=== PATIENT | female | born 1995 | race African-American/Black ===

== ENCOUNTER → 2017-10-22 | Outpatient (CLI) | payer MEDICAID ==
[2017-10-22 13:11] LABS: RBCS (WET MOUNT) NO RBCS SEEN; T.VAGINALIS (WET MOUNT) NO TRICHOMONAS SEEN; WBCS (WET MOUNT) 1+ WBCS SEEN; YEAST (WET MOUNT) NO YEAST SEEN
[2017-10-22 14:39] LABS: CHLAM PCR NOT DETECTED (NOT DETECT); GON PCR NOT DETECTED (NOT DETECT)
== END ==
LOC: LAB 13:01
PROVIDERS: ATTEND Nurse Practitioner Acute Care
DX: N89.8 Other specified noninflammatory disorders of vagina (principal); Z20.2 Contact with and (suspected) exposure to infections with a predominantly sexual mode of transmission
CPT/HCPCS: 87210; 87491; 87591

== ENCOUNTER 2017-11-20 15:41 | Emergency (ER) | payer SELFPAY ==
--- NOTE | 2017-11-20 16:14 | ER Document Report ---
HPI - HPI Patient complains to provider of: Abscess Onset: Other - I have days Onset/Duration: Gradual Pain Level: 5 Context: 22-year-old nondiabetic female with a throbbing left buttocks abscess near the gluteal crest for 5 days. No history of MRSA. No fever or chills. No history of pilonidal cyst. Associated Symptoms: None Exacerbated by: Walking Relieved by: Denies Similar symptoms previously: No Recently seen / treated by doctor: No - ROS ROS below otherwise negative: Yes Systems Reviewed and Negative: Yes All other systems reviewed and negative - REPRODUCTIVE Reproductive: DENIES: : Past Medical History - General Information source: Patient - Social History Smoking Status: Unknown if Ever Smoked Frequency of alcohol use: None Drug Abuse: None Lives with: Family Family History: Arthritis, CAD, DM, Hyperlipidemia, Hypertension - Medical History Medical History: Negative Surgical Hx: Negative - Immunizations Immunizations up to date: Yes Hx Diphtheria, Pertussis, Tetanus Vaccination: Yes Vertical Provider Document - CONSTITUTIONAL Agree With Documented VS: Yes Exam Limitations: No Limitations - INFECTION CONTROL TRAVEL OUTSIDE OF THE [place] IN LAST 30 DAYS: No - HEENT HEENT: Normocephalic - NECK Neck: Supple - DERM Integumentary: Abscess - Tender tense left buttocks abscess below the gluteal crest Course - Vital Signs Vital signs: Temp Pulse Resp BP Pulse Ox 98.5 F 62 18 119/66 96 11/20/17 15:57 11/20/17 15:57 11/20/17 15:57 11/20/17 15:57 11/20/17 15:57 Procedures - Incision and Drainage Buttock Time completed: 17:31 Type: Simple Anesthetic type: 1% Lidocaine mL's of anesthetic: 3 Blade size: 11 I&D procedure: Betadine prep applied, Sterile dressing applied - packing with corner of 4 x 4 Incision Method: Incision made by scalpel Amount/type of drainage: Large pus and blood Discharge - Discharge Clinical Impression: Abscess I&D Condition: Good Disposition: HOME, SELF-CARE Instructions: Abscess ([facility]), Acetaminophen, Cephalexin ([facility]), Ibuprofen ( General) ([facility]), Post Incision and Drainage, Trimethoprim-Sulfa ([facility]) Additional Instructions: Wound check in 2 days Return sooner if worse Take both antibiotics until they are gone Leave the original dressing on for 2 days and then remove. Shower and use a washcloth and antibacterial soap, wash vigorously and let the water spray into the wound Prescriptions: Ibuprofen [Motrin 800 mg Tablet] 800 mg PO Q8HP PRN #30 tablet PRN Reason: Cephalexin Monohydrate [Keflex 500 mg Capsule] 500 mg PO QID #28 capsule Sulfamethoxazole/Trimethoprim [Sulfamethoxazole-Tmp Ds Tablet] 1 each PO BID # 14 tablet Forms: Return to Work
[2017-11-20] MEDS ORDERED: LIDOCAINE 4%/TETRACAINE 0.5%/EPI 0.18% 5 ML TOPICAL SOLN TOP ONE (16:23)
[2017-11-20] MEDS ORDERED: ONDANSETRON 4 MG TAB.RAPDIS PO ONE (16:23)
[2017-11-20] MEDS ORDERED: IBUPROFEN 800 MG TABLET PO ONE (16:23)
[2017-11-20] MEDS ORDERED: CEPHALEXIN 500 MG CAPSULE PO ONE (16:23)
[2017-11-20] MEDS ORDERED: SULFAMETHOXAZOLE/TRIMETHOPRIM 800-160 MG TABLET PO ONE (16:23)
[2017-11-20 17:44] VITALS: BP 111/72
== END 2017-11-20 17:41 | disposition home or self-care (01) ==
LOC: ER 15:41
PROC: 0H98XZZ Drainage of Buttock Skin, External Approach (ICD-10-PCS; principal; 2017-11-20)
DX: L02.31 Cutaneous abscess of buttock (principal)
CPT/HCPCS: 99283; 10060; S0119; J3490

== ENCOUNTER 2019-04-28 03:29 | Emergency (ER) | payer MEDICAID ==
[2019-04-28 07:43] VITALS: BP 107/78
--- NOTE | 2019-04-28 07:56 | EKG REPORT ---
SEVERITY:- NORMAL ECG - SINUS RHYTHM : Confirmed by: Raymond Morrison MD 28-Apr-2019 07:55:46
--- NOTE | 2019-04-28 17:51 | ER Document Report ---
Entered by STORM GODWIN SCRIBE 04/28/19 0651 Acting as scribe for:JEANMARIE GOMES MD ED Cardiac - General Chief Complaint: Chest Pain Stated Complaint: CHEST PRESSURE,TIGHTNESS Time Seen by Provider: 04/28/19 06:36 Mode of Arrival: Ambulatory Information source: Patient Notes: Patient is 23-year-old female who presents to the emergency department today with complaints of chest pain for x1 month. Patient states the pain has been in the center of her chest for the last month but last night it was "more over my heart" which is why she decided to come in today. Patient states that the pain feels like a "pulse of sharp pain" stating that it lasts for around 1 minute and then is gone for about 5 minutes before it comes back. Patient mentions that she has had increased anxiety since giving in September. Patient states she is having difficulty sleeping as well which is a chronic issue for her. Patient states that she does not have a local medical doctor stating that she moved here in December and has not looked for one yet. TRAVEL OUTSIDE OF THE [place] IN LAST 30 DAYS: No - Related Data Allergies/Adverse Reactions: No Known Allergies Allergy (Verified 04/28/19 03:45) Past Medical History - General Information source: Patient - Social History Smoking Status: Never Smoker Cigarette use (# per day): No Chew tobacco use (# tins/day): No Frequency of alcohol use: None Drug Abuse: None Lives with: Family Family History: Arthritis, CAD, DM, Hyperlipidemia, Hypertension Patient has suicidal ideation: No Patient has homicidal ideation: No Psychiatric Medical History: Reports: Hx Anxiety - Immunizations Immunizations up to date: Yes Hx Diphtheria, Pertussis, Tetanus Vaccination: Yes Review of Systems - Review of Systems Constitutional: No symptoms reported EENT: No symptoms reported Cardiovascular: See HPI, Chest pain Respiratory: No symptoms reported Gastrointestinal: No symptoms reported Genitourinary: No symptoms reported Female Genitourinary: No symptoms reported Musculoskeletal: No symptoms reported Skin: No symptoms reported Hematologic/Lymphatic: No symptoms reported Neurological/Psychological: See HPI, Anxiety, Other - difficulty sleeping -: Yes All other systems reviewed and negative Physical Exam - Vital signs Vitals: Temp Pulse Resp BP Pulse Ox 98.3 F 63 18 143/98 H 100 04/28/19 03:45 04/28/19 03:45 04/28/19 03:45 04/28/19 03:45 04/28/19 03:45 - Notes Notes: Physical Exam: General: Alert, appears well. HEENT: Normocephalic. Atraumatic. PERRL. Extraocular movements intact. Oropharynx clear. Neck: Supple. Non-tender. Respiratory: No respiratory distress. Clear and equal breath sounds bilaterally. Minimal left anterior chest wall tenderness to palpation inferior to the left breast. Cardiovascular: Regular rate and rhythm. Abdominal: Normal Inspection. Non-tender. No distension. Normal Bowel Sounds. Back: No gross abnormalities. Extremities: Moves all four extremities. Upper extremities: Normal inspection. Normal ROM. Lower extremities: Normal inspection. No edema. Normal ROM. Neurological: Normal cognition. AAOx4. Normal speech. Psychological: Normal affect. Normal Mood. Skin: Warm. Dry. Normal color. Course - Vital Signs Vital signs: Temp Pulse Resp BP Pulse Ox 97.8 F 55 L 18 107/78 100 04/28/19 07:41 04/28/19 05:50 04/28/19 07:41 04/28/19 07:41 04/28/19 07:41 Discharge - Discharge Clinical Impression: Anterior chest wall pain, Pressure in chest, Anxiety Condition: Stable Disposition: HOME, SELF-CARE Additional Instructions: Chest Pain of Unclear Cause The exact cause of your chest pain isn't clear. Fortunately, there is no evidence of a dangerous medical condition. Further testing may be required to find the source of the pain. Most often, we find that this pain is coming from the chest wall -- the muscles or rib joints in the chest. But chest pain can come from the lung and lung lining, the esophagus, the heart valves or heart lining, and even the stomach or gallbladder. Rest. Eat lightly until the pain is gone. We may prescribe medicine for pain and inflammation. You should call the physician immediately if the pain radiates to the shoulder, jaw or arms; if you start to run a fever or develop a cough; or if you develop shortness of breath, or other new or alarming symptoms. Anxiety The physician feels that some of your health problems are being caused by anxiety. Anxiety affects your health in many ways. Anxiety alone can cause palpitations, sweats, chest pains, abdominal pains, shortness of breath, and headaches. It contributes to ulcer disease, high blood pressure, irritable bowel syndrome, and has been shown to cause flare-ups of many other diseases. Anxiety is not a simple disorder to treat. If the anxiety is due to recent life stresses, you may simply need time to "work through" the changes. If the anxiety is due to an underlying unhappiness with yourself or due to psychiatric disturbance, professional help will be needed. Your physician can refer you for further help if needed. Anti-anxiety medication is occasionally given if the stress is acute or if you are having trouble sleeping. Chronic or frequent use of these medications is not a good idea because the body becomes reliant on it, preventing you from dealing with life's normal stresses. Try taking ibuprofen for chest discomfort if it becomes more frequent. Follow-up with a local medical doctor to discuss any other health concerns. RETURN TO THE EMERGENCY ROOM IF ANY NEW OR WORSENING SYMPTOMS. [employer] Attestation: 04/28/19 06:52 I personally performed the services described in the documentation, reviewed and edited the documentation which was dictated to the scribe in my presence, and it accurately records my words and actions. I personally performed the services described in the documentation, reviewed and edited the documentation which was dictated to the scribe in my presence, and it accurately records my words and actions.
== END 2019-04-28 07:48 | disposition home or self-care (01) ==
LOC: ER 03:29
DX: R07.89 Other chest pain (principal); F41.9 Anxiety disorder, unspecified
CPT/HCPCS: 93005; 93010; 99284